=== PATIENT | female | born 1965 | race Caucasian/White ===

== ENCOUNTER 2018-05-06 05:42 | Day surgery (SDC) | payer OTHER ==
[2018-05-06] MEDS ORDERED: PROPOFOL 60 ML (08:35)
== END 2018-05-06 16:53 | disposition home or self-care (01) ==
LOC: GIL 05:42
DX: Z12.11 Encounter for screening for malignant neoplasm of colon (principal); K64.8 Other hemorrhoids
CPT/HCPCS: 45378

== ENCOUNTER 2018-06-05 05:41 | Day surgery (SDC) | payer OTHER ==
[2018-06-05] MEDS ORDERED: CEFAZOLIN 1 GM INJ (07:00)
[2018-06-05] MEDS ORDERED: LACTATED RINGER'S 1,000 ML IV* (07:00)
[2018-06-05] MEDS ORDERED: MIDAZOLAM 1 MG/ML 2 ML INJ (08:14)
[2018-06-05] MEDS ORDERED: FAMOTIDINE 20 MG INJ (08:14)
[2018-06-05] MEDS ORDERED: FENTAnyl 50 MCG/ML VIAL ×2 (08:14→09:14)
[2018-06-05] MEDS ORDERED: LIDOCAINE 2% (SDV) 5 ML INJ (08:14)
[2018-06-05] MEDS ORDERED: PROPOFOL 20 ML (08:14)
[2018-06-05] MEDS ORDERED: DEXAMETHASONE 4 MG/ML 1 ML INJ (08:15)
[2018-06-05] MEDS ORDERED: MEPERIDINE 25 MG INJ IV (08:30)
[2018-06-05] MEDS ORDERED: DIPHENHYDRAMINE 50 MG INJ IV (08:30)
[2018-06-05] MEDS ORDERED: FENTAnyl 50 MCG/ML VIAL IV (08:30)
[2018-06-05] MEDS ORDERED: morphine (1 MG/ML) 10ML SYRINGE IV (08:30)
[2018-06-05] MEDS ORDERED: ONDANSETRON 4 MG INJ IV (08:30)
[2018-06-05] MEDS ORDERED: HYDROmorphONE 1 MG/5 ML IV SYRINGE IV (08:30)
[2018-06-05] MEDS ORDERED: ALBUTEROL 0.083% (NEB) 2.5 MG/3 ML AMP (09:01)
[2018-06-05] MEDS ORDERED: PROVENTIL HFA 6.7GM INHALER (09:05)
[2018-06-05] MEDS ORDERED: PHENYLephrine (100 MCG/ML) 5ML SYG (09:24)
[2018-06-05] MEDS ORDERED: ONDANSETRON 4 MG INJ (10:06)
[2018-06-05] MEDS: OXYCODONE/ACETAMINOPHEN (5/325) TAB PO (11:30)
== END 2018-06-05 12:42 | disposition home or self-care (01) ==
LOC: SDS 05:41
DX: N95.0 Postmenopausal bleeding (principal); D25.9 Leiomyoma of uterus, unspecified; J45.909 Unspecified asthma, uncomplicated
CPT/HCPCS: 58558; 88305